=== PATIENT | female | born 1990 | race Caucasian/White ===

== ENCOUNTER 2017-01-04 09:00 | Emergency (ER) | payer OTHER | END 2017-01-04 10:27 | disposition home or self-care (01) | LOC: D.ER 09:00 | DX: K61.1 Rectal abscess (principal) ==

== ENCOUNTER 2017-01-05 19:45 | Emergency (ER) | payer OTHER ==
[2017-01-05 21:06] LABS: BASOPHILS 0.1 % (0-2); EOSINOPHILS 2.3 % (0-7); HEMOGLOBIN 13.5 g/dL (12-16); IMMATURE GRANULOCYTES 0.1 % (0-5); LYMPHOCYTES 16.3 % (15-50); MCH 28.5 pg (26.0-34.0); MCHC 32.9 g/dL (31.0-37.0); MCV 86.5 fL (80.0-100.0); MEAN PLATELET VOLUME 8.8 fL (7.4-10.4); MONOCYTES 8.4 % (2-11); NEUTROPHILS 72.8 % (40-80); PLATELET COUNT 259 10x3/uL (130-400); RBC 4.74 10x6/uL (4.00-5.40); WBC 6.9 10x3/uL (4.8-10.8)
[2017-01-05 21:19] LABS: ALBUMIN 3.2 g/dL (3.4-5.0); ALKALINE PHOSPHATASE 147 U/L (46-116); ALT (SGPT) 51 U/L (10-68); BILIRUBIN - TOTAL 0.72 mg/dL (0.2-1.3); CALC OSMOLALITY 271 mosm/kg (275-300); CALCIUM 9.3 mg/dL (8.5-10.1); CARBON DIOXIDE 24.6 mmol/L (21.0-32.0); CHLORIDE - SERUM 103 mmol/L (98-107); CREATININE - SERUM 0.7 mg/dL (0.6-1.3); GLUCOSE 93 mg/dL (74-106); POTASSIUM - SERUM 3.5 mmol/L (3.5-5.1); PROTEIN - SERUM 7.4 g/dL (6.4-8.2); SODIUM 137 mmol/L (136-145); UREA NITROGEN 8 mg/dL (7-18); eGFR NON AFRICAN AMERICAN > 90 mL/min (90-120)
== END 2017-01-05 22:20 | disposition home or self-care (01) ==
LOC: D.ER 19:45
PROVIDERS: Physician Assistant Medical
DX: K61.1 Rectal abscess (principal)

== ENCOUNTER 2017-01-11 11:40 | Day surgery (SDC) | payer OTHER ==
[2017-01-11] MEDS ORDERED: TYLENOL W/CODEI1 TAB PO (12:39)
[2017-01-11] MEDS ORDERED: NORCO 7.5/325 T1 TA1 PO (12:40)
[2017-01-11 12:50] VITALS: BP 140/82; BMI 44.8
[2017-01-11 13:00] LABS: HCG URINE NEGATIVE (NEGATIVE)
--- NOTE | 2017-01-11 17:13 | NUR ---
6392--PT VOIDS WITHOUT DIFFICULTY, IV DC'D. PT COMPLAINS OF PAIN, RATES PAIN 6/10, REQUESTS HYDROCODONE BEFORE TRIP HOME. NORCO 5/325MG X2 TABLETS GIVEN PO. HGRAHERNANDEZ RN
--- NOTE | 2017-01-11 17:15 | NUR ---
1715--DISCHARGE INSTRUCTIONS GIVEN, PT VERBALIZES UNDERSTANDING. PT OFF UNIT VIA [facility]. KEHINDE LOPEZ
--- NOTE | 2017-01-22 09:40 | OP ---
PATIENT NAME: NALLELY FELIX MEDICAL RECORD: [id number] :89 LOCATION:D.OPS ADMISSION DATE: SURGEON: NICKOLAS MCDOWELL MD DATE OF OPERATION: 01/11/2017 PREOPERATIVE DIAGNOSES: Perirectal abscess, rule out anorectal fistula. POSTOPERATIVE DIAGNOSES: Perirectal abscess, rule out anorectal fistula, with no evidence of an anal or rectal fistula. PROCEDURES: 1. Anal evaluation under anesthesia. 2. Excisional debridement of perirectal abscess with marsupialization and packing. SURGEON: Nickolas Mcdowell MD MAID CLEANING COOKING: None. BLOOD LOSS: Minimal. ANESTHESIA: General. COMPLICATIONS: None. The risks, possible complications and alternatives to the procedure were explained to the patient. She elects to proceed. OPERATIVE COURSE: The patient was conveyed to the operating room electively on 01/11/2017. General anesthesia was induced by the anesthesia staff. The patient was placed in the lithotomy position. The buttocks and perianal areas were sterilely prepped and draped. U-shaped anal retractors were placed. I examined the anus as well as the lower rectum. I noted the incision and drainage site, which was at least 4 cm from the anal verge. While examining the anus with U-shape anal retractors in place, I inserted an Angiocath that had a syringe attached to it. It was full of hydrogen peroxide. Under pressure, I injected this into the abscess cavity. I saw no flow of hydrogen peroxide into the anus or rectum and therefore no evidence of an anal or rectal fistula. An excisional debridement was performed. The dimensions of the debridement were 2.2 x 2.4 cm, included skin and subcutaneous tissue as well as a portion of a track and I curetted out this track. The track did not aim towards the anus or rectum. 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 I curetted out this track. This appeared to be a formed track with granulation tissue. I then marsupialized the wound with a running locking 3-0 Vicryl Rapide suture. I then packed the wound with 1-inch Iodoform gauze. A combination of sterile preparation and Marcaine were used to infiltrate the perianal tissues. Gelfoam was applied within the anus and lower rectum. A topical anesthetic cream was applied to the external hemorrhoids. The patient was then extubated and conveyed to the post-anesthesia care unit, where she was in stable condition. She will be dismissed home on yl as well OPERATIVE REPORT [id number] NALLELY FELIX as [place] and [place]. I will see her in the office on Saturday for packing removal. TRANSINT:[id number] Voice Confirmation ID: [id number] DOCUMENT ID: [id number] NICKOLAS MCDOWELL MD at 0940 CC: [id number] DICTATION DATE: 01/11/17 1535 SLASHER MACHINE OPERATOR: 01/11/17 1640 [facility] 01/11/17 [id number] [place] [address]
--- NOTE | 2017-01-22 09:40 | HP ---
PATIENT: NALLELY FELIX MEDICAL RECORD: [id number] ACCOUNT: [id number] LOCATION:[facility] : 89 ADMISSION DATE: 01/11/17 HISTORY AND PHYSICAL EXAMINATION CHIEF COMPLAINT: Abscess. HISTORY OF PRESENT ILLNESS: The patient was seen in the Emergency Room. She underwent incision and drainage of a right perirectal abscess. This is her third anal operation. She has undergone operations by Dr. Virgen as well as by Dr. Tracy. I have reviewed those operative records. Although a fistulotomy was not specifically described in any of the operative procedures, Dr. Virgen in his operative note states that he opened up a tract. It sounds like there was a superficial fistula which he marsupialized. My plan is for anal evaluation under anesthesia, drainage of perirectal abscess as well as possible fistulotomy, possible Seton placement. I discussed with the patient how Setons work and the philosophy behind why they would be used. I told her that cutting across sphincteric muscle at one side is okay and usually there is no fecal incontinence, but cutting across sphincteric muscle twice frequently will lead to permanent fecal incontinence and this can be prevented by placing a Seton. The risks, possible complications and alternatives to procedure were explained to the patient. She elects to proceed. The discussion specifically included, but was not limited to, bleeding requiring an emergency reoperation, infection, recurrent anal or hemorrhoidal problems. PAST MEDICAL AND SURGICAL HISTORY: She has had 3 anal operations as described above, history of tonsillectomy with adenoidectomy, history of some type of superficial ankle surgery, sounds like it was some type of skin operation. SOCIAL HISTORY: Nonsmoker. HOME MEDICATIONS: Her only medicine is hydrocodone. ALLERGIES: CLEOCIN. REVIEW OF SYSTEMS: Negative for heart disease or high blood pressure. No fainting or seizures. No diabetes, no thyroid disease. No respiratory disease. She is not short of breath. PHYSICAL EXAMINATION: GENERAL: The patient does not appear acutely ill. She does not appear chronically ill. The entire physical examination was performed in the presence of a female nurse. VITAL SIGNS: Reviewed. HEAD: External ears appear normal. EYES: Extraocular movements are intact. NECK: Trachea is midline. CHEST: No intercostal retractions. PULMONARY: Nonlabored, no stridor. ABDOMEN: No peritonitis with movement. EXTREMITIES: No peripheral cyanosis. INTEGUMENT: No rash, no ulcerations. HISTORY AND PHYSICAL [id number] ISIDRO,NALLELY PSYCHIATRIC: Normal affect. NEUROLOGIC: Nonfocal, no lethargy. The patient answers questions appropriately, moves all extremities well. BACK: No thoracic kyphosis. LYMPHATICS: No lymphangitic streaking of the exposed extremities. ANAL: Tenderness and erythema to the right of the midline. There is an incision and drainage site which has been draining. IMPRESSION: Perirectal abscess, recurrent, rule out anal or rectal fistula. PLAN: Anal evaluation under anesthesia, excisional debridement of perirectal abscess and then possible fistulotomy. TRANSINT:[id number] Voice Confirmation ID: [id number] DOCUMENT ID: [id number] MISHA MCDOWELL MD at 0940 CC: RODO MUHAMMAD MD and BRENTON PHILIPPE MD [id number] DICTATION DATE: 01/11/17 1527 VOCATIONAL EDUCATION TEACHER: 01/11/17 1611 [facility] 01/11/17 [id number] [place] [address]
== END 2017-01-11 17:15 | disposition home or self-care (01) ==
LOC: D.OPS 11:40
PROVIDERS: Surgery
DX: K61.1 Rectal abscess (principal); E66.9 Obesity, unspecified; Z68.41 Body mass index [BMI] 40.0-44.9, adult